=== PATIENT | male | born 1960 | race Caucasian/White ===

== ENCOUNTER 2019-11-18 08:15 | Day surgery (SDC) | payer BC ==
[~2019-11-18] VITALS: Ht 177.8 cm; Wt 108.9 kg
--- NOTE | ~2019-11-18 | HP ---
PATIENT: DMITRIY BRAGA MEDICAL RECORD: [id number] ACCOUNT: [id number] LOCATION:[facility] : 62 ADMISSION DATE: 11/18/19 PCP: HISTORY AND PHYSICAL EXAMINATION PREOPERATIVE HISTORY AND PHYSICAL HISTORY OF PRESENT ILLNESS: Mr. 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 He has recently developed persistent pain on a PET scan, which lit up on the left side. His exam in the office has been completely negative, but he does have some typical laryngeal postradiation edema and the exam is not 100%. He is being admitted for direct laryngoscopy, cervical esophagoscopy and careful exam and biopsy anything suspicious. PAST MEDICAL HISTORY: Includes hypertension, coronary artery disease, liver disease, larynx cancer. PAST SURGICAL HISTORY: Includes cardiac stents times 3 in 2014, cholecystectomy in 2013. CURRENT MEDICATIONS: Include ezetimibe, tamsulosin, simvastatin, lisinopril, levothyroxine, amlodipine, finasteride, Nexium, aspirin. ALLERGIES: No known drug allergies. PHYSICAL EXAMINATION: GENERAL: He is healthy appearing. He has got a moderately hoarse voice. FACE: Normal, symmetric, no lesions. EYES: Sclerae and conjunctivae are normal. EARS: Canals and TMs normal. NOSE: No mass, polyps or drainage. ORAL CAVITY AND OROPHARYNX: Normal. NECK: He has got some moderate fibrosis and patches from his radiation. Laryngoscopy reveals base of tongue, hypopharynx were all normal, but he has got diffuse supraglottic edema consistent with his history of radiation, but everything looked smooth and normal. Cords were barely visible, but normal closure. I see no ulcerations, no evidence of any dysplasia or granular changes. CHEST: Clear. CARDIOVASCULAR: Regular rate and rhythm. No murmur. IMPRESSION: History of supraglottic larynx cancer about a year and a half ago, treated with radiation. He has pain and questionable area on PET scan almost not exactly in the area of his previous cancer symptoms on the opposite side. PLAN: Direct laryngoscopy and cervical esophagoscopy and biopsy and evaluation of anything suspicious. TRANSINT:[id number] Voice Confirmation ID: [id number] DOCUMENT ID: [id number] HISTORY AND PHYSICAL [id number] SAHARADMITRIY ABDI SHAHZAD [place] MD CC: [id number] DICTATION DATE: 11/17/19 1116 PRECISION LENS GRINDER: 11/17/19 1255 PRE [facility] [address] [facility], [id number]
--- NOTE | ~2019-11-18 | OP ---
PATIENT NAME: DMITRIY BRAGA MEDICAL RECORD: [id number] :62 LOCATION:D.[facility] ADMISSION DATE: SURGEON: HENRY HARO MD DATE OF OPERATION: 11/18/2019 PREOPERATIVE DIAGNOSES: History of larynx cancer, throat pain. POSTOPERATIVE DIAGNOSES: History of larynx cancer, throat pain. PROCEDURE: Direct laryngoscopy and cervical esophagoscopy. SURGEON: Henry Haro MD ANESTHESIA: General orotracheal. BLOOD LOSS: None. SPECIMENS: None. DISPOSITION: Recovery stable. FINDINGS: Direct laryngoscopy completely negative, cervical esophagoscopy to mid esophagus completely negative. PROCEDURE NOTE: He was brought to operating room and placed in supine position, sedated and intubated by me. Table was turned 90 degrees. Head drape was applied. He was positioned for laryngoscopy. He did have limited upper dentition, but he had some. The oral cavity, oropharynx was examined, carefully palpated the lateral pharyngeal wei, base of the tongue, deep layers all normal and soft. He had fibrosis on his neck, but really everything on the base of the tongue was soft. Kleinsasser J laryngoscope was inserted and used to evaluate the posterior pharyngeal wall, lateral pharyngeal wei, base of tongue, vallecula, both piriformis. The supraglottic larynx had a uniform edema, fairly pale coloration, but examined it thoroughly. The laryngeal surface of the epiglottis, lingual surface of the epiglottis, AE folds medially and laterally, the arytenoids posterior, the posterior glottic space, the cords really everything was smooth, uniform, clean, nothing friable, nothing suspicious at all. Lifted the tube up, evaluated subglottis posteriorly and the anterior commissure, the false cord just could not see anything and least bit suspicious. The Kleinsasser J laryngoscope was removed. The cervical esophagoscope was entered, evaluated the piriformis and post-cricoid area and the posterior pharyngeal wall, the esophageal inlet again, inserted it and then slowly went to about 30 cm and suctioned out some secretions but then slowly backing out again, nothing and least bit suspicious, everything looked perfectly normal, again nothing friable. Looked again in the area of the arytenoids, medial AE folds, false cords on both sides, area where the tumor was previously as well as kind of area where the PET scan lit up a little bit and could not find anything at all. No biopsies were undertaken. He was awakened, extubated, and transported to recovery in good condition. No complications. TRANSINT:[id number] Voice Confirmation ID: [id number] DOCUMENT ID: [id number] OPERATIVE REPORT [id number] DMITRIY BRAGA ERIC MD CC: [id number] DICTATION DATE: 11/18/19 1210 ADMINISTRATIVE ACCOUNTANT: 11/18/192202 [facility] 11/18/19 [place] [id number] [place] [id number]
[~2019-11-18 08:15] MED LIST: BAYER CHEWABLE81 MG PO; CO Q-10100 MG PO; CRESTOR20 MG PO; LISINOPRIL20 MG PO; NEXIUM20 MG PO; NORVASC5 MG PO; PEPCID AC20 MG PO; SINGULAIR10 MG PO; SYNTHROID75 MCG PO; VITAMIN B-122500 MCG PO; VITAMIN D3 PO; ZETIA10 MG PO
[2019-11-18 08:37] LABS: HEMATOCRIT 41.9 % (42.0-54.0); HEMOGLOBIN 13.5 g/dL (13.5-17.5); LYMPHOCYTES 12.5 % (15-50); MCH 28.7 pg (26.0-34.0); MCHC 32.2 g/dL (31.0-37.0); MCV 89.1 fL (80.0-100.0); NEUTROPHILS 72.9 % (40-80); PLATELET COUNT 132 10x3/uL (130-400); WBC 4.9 10x3/uL (4.8-10.8)
[2019-11-18 08:58] LABS: ALBUMIN 3.8 g/dL (3.4-5.0); ALKALINE PHOSPHATASE 88 U/L (30-120); ALT (SGPT) 43 U/L (10-68); BILIRUBIN - TOTAL 0.52 mg/dL (0.2-1.3); CALC OSMOLALITY 275 mosm/kg (275-300); CALCIUM 9.1 mg/dL (8.5-10.1); CARBON DIOXIDE 33.4 mmol/L (21.0-32.0); CHLORIDE - SERUM 100 mmol/L (98-107); CREATININE - SERUM 0.8 mg/dL (0.6-1.3); GLUCOSE 127 mg/dL (74-106); PROTEIN - SERUM 7.5 g/dL (6.4-8.2); SODIUM 137 mmol/L (136-145); UREA NITROGEN 13 mg/dL (7-18); eGFR NON AFRICAN AMERICAN > 90 mL/min (90-120)
[2019-11-18 09:21] LABS: APTT 29.8 SECONDS (22.8-39.4); INR 0.93 (0.85-1.17); PROTIME 12.4 SECONDS (11.6-15.0)
[2019-11-18 09:31] VITALS: Ht 177.8 cm; Wt 108.9 kg
--- NOTE | 2019-11-18 13:40 | NUR ---
1315-VSS.NO DISTRESS. DENIES N/V.REPORTS PAIN ONLY WHEN HE SWALLOWS, WHICH WAS THERE PRIOR TO SURGERY.RATES 2/10 UPON SWALLOWING. TOLERATING ICE WATER.
--- NOTE | 2019-11-18 13:42 | NUR ---
1323-REMOVED IV WITH CATH INTACT,DISPOSED INTO SHARPS,COVER WITH GUAZE,SECURE WITH MEDIPORE TAPE. REVIEWED POST OP INSTRUCTIONS AND FOLLOW UP APPOINTMENT.VERBALIZED UNDERSTANDING.
--- NOTE | 2019-11-18 13:45 | NUR ---
1345-DISCHARGE CRITERIA MET. PT DRESSED. ESCORTED OUT VIA W/C WITH SPOUSE AWAITING TO DRIVE HOME.
== END 2019-11-18 13:45 | disposition home or self-care (01) ==
LOC: D.OPS 08:15 → D.PAN 10:15 → D.OPS 10:45 → D.PAN 10:45 → D.OPS 13:45
PROVIDERS: Anesthesiology; ATTEND Otolaryngology
DX: R07.0 Pain in throat (principal); Z85.21 Personal history of malignant neoplasm of larynx; I10 Essential (primary) hypertension

== ENCOUNTER → 2020-11-16 07:51 | Outpatient (CLI) | payer BC ==
[2019-11-18 09:31] VITALS: BMI 34.5
== END | disposition home or self-care (01) ==
LOC: D.HCCARDIO 07:51
PROVIDERS: ATTEND Internal Medicine Cardiovascular Disease
DX: I25.10 Atherosclerotic heart disease of native coronary artery without angina pectoris (principal)